=== PATIENT | male | born 1970 | race Caucasian/White ===

== ENCOUNTER 2021-12-04 13:30 | Outpatient (CLI) | payer OTHER, SELFPAY ==
[2021-12-04 22:29] LABS: Chloride* 99 mmol/L (96-114); Potassium* 4.3 mmol/L (3.6-5.1); Sodium* 137 mmol/L (135-149)
[2021-12-04 22:32] LABS: Blood Urea Nitrogen* 11 mg/dL (7-30); Carbon Dioxide* 30 mmol/L (20-32); Cholesterol* 153 mg/dL (90-199); Creatinine* 0.9 mg/dL (0.5-1.5); Estimated Glomerular Filt Rate 104 ml/min
[2021-12-04 22:33] LABS: Calcium* 9.3 mg/dL (8.4-10.6); Glucose* 85 mg/dL (60-115); HDL Cholesterol* 46 mg/dL (>=40); LDL Cholesterol Calculated 95 mg/dL (<100); Triglycerides* 62 mg/dL (40-149)
== END 2021-12-04 13:31 | disposition home or self-care (01) ==
PROVIDERS: PCP Physician Assistant Medical; Visit Provider Physician Assistant Medical
DX: Z00.00 Encounter for general adult medical examination without abnormal findings (principal); N52.9 Male erectile dysfunction, unspecified; Z13.6 Encounter for screening for cardiovascular disorders
CPT/HCPCS: 80048; 80061

== ENCOUNTER 2023-01-16 16:05 | Outpatient (CLI) | payer OTHER, SELFPAY | END 2023-01-16 16:06 | disposition home or self-care (01) | PROVIDERS: PCP Physician Assistant Medical; Visit Provider Physician Assistant Medical | DX: Z00.00 Encounter for general adult medical examination without abnormal findings (principal); Z13.6 Encounter for screening for cardiovascular disorders; Z13.29 Encounter for screening for other suspected endocrine disorder; Z13.9 Encounter for screening, unspecified | CPT/HCPCS: 80053; 80061; 84443 ==

== ENCOUNTER 2023-04-04 07:56 | Outpatient (CLI) | payer OTHER, SELFPAY ==
--- NOTE | 2023-04-04 08:15 | CRLHL7_ITS ---
For Patients: As a result of the Century Cures Act, medical imaging exams and procedure reports are released immediately into your electronic medical record. You may view this report before your referring provider. If you have questions, please contact your health care provider. Technique: Double-contrast esophagram performed after the uneventful administration of effervescent crystals and thick barium followed by thin barium. Fluoroscopy time 1 minutes 7 seconds. Indication: Dysphagia Comparison: None. Findings: Mild residual food products are present within the distal esophagus at the start of the examination. Mucosal irregularity of the distal esophagus at the GE junction. Although barium tablet passes normally through the GE junction, there are intermittent episodes of spasm which prevented clearance of contrast from the esophagus into the stomach. No discrete ulcer. No Sharma`s. Markedly diminished esophageal clearance with decreased motility of the entire esophagus. No hiatal hernia. Impression: The mucosal irregularity at the GE junction with associated spasm and decreased esophageal motility. No hernia. EGD recommended for further evaluation. Dictated by Eddi Bonds MD @ 04/04/2023 10:09:42 AM (Electronically Signed)
== END 2023-04-04 07:57 | disposition home or self-care (01) ==
LOC: RAD 07:58
PROVIDERS: PCP Physician Assistant Medical; Visit Provider Surgery
DX: R13.10 Dysphagia, unspecified (principal)
CPT/HCPCS: 74221

== ENCOUNTER 2024-04-08 15:26 | Outpatient (CLI) | payer OTHER, SELFPAY | END 2024-04-08 15:27 | disposition home or self-care (01) | LOC: NFLDREF 04-13 17:47 | PROVIDERS: PCP Physician Assistant Medical; Referring Provider Physician Assistant Medical; Visit Provider Physician Assistant Medical | DX: K21.9 Gastro-esophageal reflux disease without esophagitis (principal); N52.9 Male erectile dysfunction, unspecified; N40.0 Benign prostatic hyperplasia without lower urinary tract symptoms; Z13.6 Encounter for screening for cardiovascular disorders; Z12.5 Encounter for screening for malignant neoplasm of prostate; Z13.29 Encounter for screening for other suspected endocrine disorder | CPT/HCPCS: 80053; 80061; 84443; G0103 ==